=== PATIENT | male | born 1975 | race Caucasian/White ===

== ENCOUNTER 2024-08-10 09:46 | Emergency (ER) | payer OTHER, SELFPAY ==
[2024-08-10 09:50] VITALS: BP 152/87
--- NOTE | 2024-08-10 10:41 | ED.MUSCINJ ---
HPI-Injury
General
Chief Complaint: Musculo-Skeletal Complaint
Time Seen by Provider: 08/10/24 10:29
History of Present Illness-Injury
Initial Injury comments:
The patient is a 48-year-old male who presents with acute onset of pain in the right leg. The patient reports that while walking to get coffee, he experienced a sudden popping sensation in his leg, initially thought to be due to stepping on
something. However, the sensation was followed by significant pain, making it difficult to bear weight on the affected leg. The pain is concentrated in the Achilles tendon area. The patients spouse assisted in bringing him to the facility as he was
unable to walk. He denies any numbness tingling or swelling. He is having significant amount of pain. No prior issues with his Achilles tendon or injuries to his ankle.
Phy Exam
Physical Exam
Physical Exam:
GENERAL: in no acute distress
HEENT: normocephalic, extraocular movements intact
NECK: normal inspection
RESPIRATORY: no respiratory distress
CARDIOVASCULAR: regular rate and rhythm
EXTREMITIES: Right lower extremity with no swelling, tenderness over Achilles tendon, difficulty with plantarflexion, able to dorsiflex, positive Atwood test. soft compartments
NEUROLOGIC: awake and alert, moves all extremities
SKIN: warm
Injury Course
Orders/Labs/Results
Orders:
Orders
08/10/24 09:53
CR Ankle - Right Min 3 Views * Urgent
Comment:
Reason For Exam: posterior pain, injury
08/10/24 10:39
Ibuprofen [Motrin] 600 mg PO NOW STA
08/10/24 11:01
Splints/Slings/Crut- Treatment ONCE
Location: Left
Type of Splint: Short Leg
Comment: plantar flexion
MDM/Problems Addressed
Differential Diagnosis Includes:
Patient is a 48-year-old man presenting to the emergency department with ankle pain after he heard a pop when stepping on it. On arrival vitals are notable for hypertension and exam does show positive Atwood test. Differential clues of Achilles
tendon injury/rupture versus ankle sprain versus fracture though less likely. Will obtain x-ray. Will place patient in a posterior splint in plantarflexion and make him nonweightbearing. Will give anti-inflammatory. Patient will need to
follow-up with orthopedic outpatient.
*Critical Care Note
Total Time (30-74mins, 75-104mins- exclusive of procedures): Not Applicable
Update Note
Update Note:
X-ray per my interpretation with no obvious fracture. Patient placed in splint. He is advised to be nonweightbearing. Will discharge this time.
ED Attending Note
-
Portions of this chart may have been created with voice recognition software.� Occasional wrong word or��sound alike� substitutions may have occurred due to the inherent limitations of voice recognition software.
Discharge Plan
Departure
Patient Disposition: Home (Routine Discharge)
Date of Disposition: 08/10/24
Time of Disposition: 11:30
Patient with high blood pressure during this ER visit?: No
Discharge Problem:
Achilles tendon injury
Instructions: Splint Care
Referrals:
Braeden Frederick MD [Active, Orthopedics] - Call in 1-3 days for appt
NONE,* [Family Provider, Internal Medicine]
Activity Restrictions/Additional Instructions:
You were seen in the Emergency Department today for an ankle injury. While you were here we placed you in a splint for suspected Achilles tendon injury. Please do not bear any weight on the leg until you have been cleared by orthopedics.
We would like for you to follow up with your primary care physician for further evaluation. If you experience fever, worsening of your symptoms, or develop any other new or concerning symptoms, please return to the Emergency Department immediately.
Please see the attached sheet for additional information.
Discharge Date and Time
Print Language: CHADIAN
[2024-08-10] MEDS: MOTRIN 600 MG PO (11:12)
== END 2024-08-10 11:55 | disposition home or self-care (01) ==
LOC: EMR 09:46
PROVIDERS: EMERGENCY PHYSICIAN Student in an Organized Health Care Education/Training Program
DX: S86.001A Unspecified injury of right Achilles tendon, initial encounter (principal); X58.XXXA Exposure to other specified factors, initial encounter; Y93.01 Activity, walking, marching and hiking
CPT/HCPCS: 29515; 99283; 73610

== ENCOUNTER → 2024-08-11 15:37 | Outpatient (REF) | payer OTHER, SELFPAY | LOC: RAD 15:37 | PROVIDERS: ATTENDING PHYSICIAN Physician Assistant Medical | DX: S05.50XA Penetrating wound with foreign body of unspecified eyeball, initial encounter (principal) | CPT/HCPCS: 70030 ==

== ENCOUNTER 2024-08-27 10:28 | Inpatient (IN) | payer OTHER, SELFPAY ==
[2024-08-26 18:04] VITALS: BP 97/76
[2024-08-26 18:31] LABS: % Basophils 0.2 % (0-2); % Eosinophils 0.7 % (0-6); % Immature Granulocytes 0.3 % (0-0.5); % Lymphocytes 15.9 % (20.5-51.1); % Monocytes 5.2 % (1.7-9.3); % Neutrophils 77.7 % (42.2-75.2); Absolute Eosinophils 0.1 10^3/uL (0-0.7); Absolute Lymphocytes 1.4 10^3/uL (1.2-3.4); Absolute Monocytes 0.5 10^3/uL (0.1-0.6); Absolute Neutrophils 6.9 10^3/uL (1.4-6.5); Hematocrit 35.4 % (39.0-52.0); Hemoglobin 12.3 g/dL (13.0-18.0); Mean Corp Hgb Conc. 34.7 g/dL (33.0-37.0); Mean Corpuscular Hgb 33.1 pg (27.0-31.0); Mean Corpuscular Volume 95.2 fL (80.0-94.0); Mean Platelet Volume 10.1 fL (7.4-10.4); Nucleated Red Blood Cells % 0 % (-); Platelet Count 196 10^3/uL (130-400); Red Blood Cell Count 3.72 10^6/uL (4.70-6.10); White Blood Cell Count 8.9 10^3/uL (4.8-10.8)
[2024-08-26 19:03] LABS: Troponin I < 0.012 ng/ml
[2024-08-26 19:05] LABS: ALT (SGPT) 25 U/L (0-50); AST (SGOT) 22 U/L (17-59); Albumin 3.9 g/dl (3.5-5.0); Alkaline Phosphatase 52 U/L (38-126); Blood Urea Nitrogen 46 mg/dl (9-20); Calcium 9.2 mg/dl (8.4-10.2); Carbon Dioxide 28 mmol/L (22-30); Chloride 108 mmol/L (98-107); Glucose 145 mg/dl (70-99); Sodium 140 mmol/L (135-145); Total Bilirubin 0.8 mg/dl (0.2-1.3); Total Protein 5.9 g/dl (6.3-8.2); eGFR > 60.00
[2024-08-26 20:26] VITALS: BMI 24.0
[2024-08-26] MEDS: NSS 1000 IV (21:36)
[2024-08-26 22:00] VITALS: BP 110/58; BP 121/67; PULSE 71; PULSE 90
[2024-08-26 22:05] LABS: D-Dimer < 0.27 ug/mlFEU (0.00-0.50)
--- NOTE | 2024-08-26 22:50 | ED.GENMED ---
History of Present Illness
General
Chief Complaint: Dizziness
Source: patient and spouse
Time Seen by Provider: 08/26/24 20:46
History of Present Illness
History of Present Illness:
Note:
CHIEF COMPLAINT(S)
Lightheadedness and fatigue.
HISTORY OF PRESENT ILLNESS
The patient is a 49-year-old male with a medical history significant for an Achilles tendon rupture, scheduled for surgical repair tomorrow. He presents with lightheadedness and fatigue. The patient reports feeling dizzy all day and experiencing
increased fatigue following a strenuous [place]. He initially felt unwell at home, resting on the floor and bed for relief. Symptoms of lightheadedness persisted when attempting to stand, especially after being supine, and he was nearly
ready to 'fall over.' He consumed fluids and was able to ambulate downstairs after resting. He reports no chest pain or shortness of breath, but felt 'real lightheaded,' sadi to being hungover. Current medications include four baby aspirin daily and
intermittent ibuprofen for pain, which has decreased in severity. No recent intense heat exposure reported, despite current high temperatures. Blood test results suggested dehydration, with a BUN/creatinine ratio greater than 20:1. Theres a concern
for potential thromboembolic events due to immobility and a scheduled Achilles tendon surgery.
ADDITIONAL HISTORY OBTAINED FROM SOURCES OTHER THAN THE PATIENT
According to the spouse, the patient has been fatigued and unable to drive.
SOCIAL DETERMINANTS AFFECTING HEALTH
The patient has recently traveled overseas for work, which was reportedly exhausting.
ALLERGIES
Penicillin.
REVIEW OF SYSTEMS
- General: Fatigue, lightheadedness.
- Cardiovascular: No chest pain.
- Respiratory: No shortness of breath.
- Neurological: Lightheadedness worsening upon standing; no headache, no vision changes, no motor weakness.
PHYSICAL EXAM
- General: Patient is awake, alert, and in no apparent distress.
- Head and Neck: Extraocular movements intact, pupils equal, round, and reactive to light, no jugular venous distention.
- Cardiovascular: Heart is regular without murmur.
- Respiratory: Lungs are clear.
- Extremities: Patient has a boot on the right lower extremity; no edema noted.
PLAN
Administer intravenous fluids for rehydration. Check orthostatic vital signs to evaluate dehydration further. Perform diagnostic testing to evaluate for thromboembolism, including D-dimer, with subsequent imaging (CT scan for pulmonary embolism
and/or ultrasound of the lower extremity) as indicated by test results. Proceed with hydration and pre-operative preparation without delay to tomorrows scheduled surgery. Patient advised to report any worsening symptoms.
DIFFERENTIAL DIAGNOSIS
The Differential Diagnosis includes, in no particular order and is not limited to:
1. Dehydration
2. Orthostatic hypotension
3. Pulmonary embolism
4. Deep vein thrombosis
5. Adverse drug effect (aspirin/ibuprofen)
6. Vasovagal syncope
7. Anemia
8. Electrolyte imbalance
9. Infection/sepsis
10. Cardiovascular event (e.g., arrhythmia)
EKG
My independent EKG interpretation is:
- Normal rhythm
- Normal axis
- SC interval is normal
- QRS duration is normal
- QTc interval is normal
- No Q wave changes
Disposition:
SUMMARY OF ENCOUNTER
The patient, a 49-year-old male with a history of Achilles tendon rupture scheduled for surgical repair, presented to the emergency department with symptoms of lightheadedness and fatigue, likely due to dehydration following overseas travel.
Intravenous fluids were administered, leading to symptomatic improvement. Considering recent immobility and travel, a D-dimer test was conducted due to the concern for thromboembolic events, but it returned negative. The patient remained stable with
no orthostatic changes post-rehydration and tolerated oral intake. Consequently, the patient was deemed safe for discharge with directions for outpatient follow-up with anesthesia and orthopedics before the scheduled surgery.
After final review of labs and findings of mild anemia and elevated BUN and recent NSAID use, concern for GI bleed. Rectal exam does show dark stool that is strongly heme positive.
DISPOSITION
The patient is discharged with outpatient follow-up planned.
INDEPENDENT REVIEW OF LABS AND INTERPRETATION OF TESTS
My independent review of labs reveals a BUN/creatinine ratio of 46/0.9, a negative D-dimer, hemoglobin level of 12.3, and a normal white blood cell count. These findings indicate dehydration without evidence of thromboembolism.
MEDICATION RECONCILIATION
Medications administered include intravenous fluids for rehydration.
MEDICAL DECISION MAKING
1. Number & Complexity of Problems:
- Chronic conditions affecting care include a previous Achilles tendon rupture.
- The differential diagnosis included dehydration, orthostatic hypotension, and potential thromboembolic events.
2. Data Reviewed:
- Category 1: Review and independent interpretation of lab results, including a negative D-dimer and dehydration indicators. Mild anemia elevated BUN
3. Risk: Consideration for admission was made due to the complexity and risk of thromboembolism due to immobility, but outpatient management was deemed appropriate based on negative D-dimer results, stable vitals, and reliable follow-up plan.
However given GI bleed will admit for IV PPI and GI evaluation
PATHOLOGIES TO CONSIDER
- Pulmonary embolism due to recent immobility and travel.
- Deep vein thrombosis considering similar risk factors, though ruled out with a negative D-dimer.
Phy Exam
Physical Exam
Physical Exam:
.
Course
Orders/Labs/Results
Orders:
Orders
08/26/24 18:06
Electrocardiogram (*1) Urgent
Reason for Study: Chest Pain
EKG- Treatment ONCE
08/26/24 18:17
Complete Blood Count/With Diff Urgent
Comprehensive Metabolic Panel Urgent
Troponin I Urgent
08/26/24 20:47
0.9% Sodium Chloride 1000 ml [Nss] 1,000 ml IV BOLUS
08/26/24 20:59
Orthostatic VS- Treatment ONCE
0.9% Sodium Chloride 1000 ml [Nss] 1,000 ml IV BOLUS
08/26/24 21:35
D-Dimer Urgent
08/26/24 23:00
Flush (0.9% Sodium Chloride) [Flush (Nss)] See Dose Instructions IV PER PROTOCOL
08/26/24 23:03
Pantoprazole 80 mg/100 ml Nss [Protonix] 80 mg in 100 ml IV NOW
Pantoprazole [Protonix IV] 80 mg IV NOW STA
08/26/24 23:31
Admit/Transfer Patient As Directed
Co-Sign Provider:
Level of Care: Observation services
Assign to:: Telemetry
Physician / Group: Jennifer
Diagnosis: near syncope
Reason for Telemetry: Syncope
Date to Stop Telemetry: 08/28/24
Time to Stop Telemetry: 11:00
08/26/24 23:32
PRN Pain Medication Management As Directed
May give lesser potent ordered pain med per pt: Yes
preference::
Protocol:: Medication orders for pain may be administered in a
manner that supports deferring to patient preference
when the pt is:
- Requesting an ordered lesser potent pain medication.
Least to most potent pain medications are defined
as: acetaminophen < NSAID < tramadol < opioids
(morphine, oxycodone, hydromorphone).
- Requesting a lesser dose of the same medication IF
ORDERED.
- Requesting a less intrusive route of administration
if both routes are prescribed by the provider (PO <
IV).
08/26/24 23:33
Code Status As Directed
Resuscitation Status: Full Code
08/26/24 23:37
Type And Crossmatch [Type+Screen] Stat
08/27/24 00:33
Acetaminophen [Tylenol] 650 mg PO Q6HPRN PRN
Dextrose 5%/Lactringers 1000ML [D5lr] 1,000 ml IV 100 mls/hr
Ondansetron Injectable [Zofran] 4 mg IV Q6HPRN PRN
Oxycodone [Roxicodone] 5 mg PO Q4HPRN PRN
08/27/24 00:33
Consult Notification Routine
Specialty to Notify: Gastroenterology
Date consulting provider notified: 08/27/24
Time consulting provider notified: 07:05
Notified:: Provider
Comment: TT
GASTROINTESTINAL CONSULT Routine
Consulting Provider: Keila James
Was physician already notified: No
Reason for consult: melena/ near syncope susp ugib
Activity As Directed
Activity Level: With Assistance
INT (Intravenous Needle Therapy) As Directed
Comment: Place 2 IV catheters of the largest bore possible until stable
Orthostatic Vital Signs As Directed
Orthostatic VS Frequency: Now
Comment: then every four hours for twenty-four hours
Pneumatic Compression Sleeves As Directed
Type: Knee high
Vital Signs As Directed
Frequency: Per unit guidelines
DX Deep Vein Thrombosis Video Routine
08/27/24 00:56
ABO2 Routine
BBK Wristband Number:
Associate notified that ABO2 has been ordered: [id number]
Date: 08/27/24
Time: 00:28
Lokie Driver ID: [id number]
08/27/24 03:49
Add On- LAB Urgent
Tests Added?: magnesium
08/27/24 03:51
Basic Metabolic Panel IN AM
Complete Blood Count/No Diff IN AM
Lactic Acid Urgent
Magnesium Routine
08/27/24 03:55
0.9% Sodium Chloride 500 ml [Nss] 500 ml IV BOLUS
08/27/24 04:09
Blood Bank Products [* Blood Bank Products] Stat
Blood Bank Products: *Packed RBC Leuko(PRBC's)
Quantity: 1
Transfuse Today: Yes
Reason: Bleeding
08/27/24 04:29
0.9% Sodium Chloride 500 ml [Nss] 500 ml IV BOLUS
08/27/24 04:37
Abdomen/Pelvis w Contrast CT [CT Abd/pelvis W Iv Cont] Stat
Comment: After the blood transfusion start
Reason For Exam: GI bleed/ hypotension and drop in hgb level
08/27/24 Breakfast
NPO
Allow oral meds: Yes
Allow clear liquids: Sips of Clears
08/27/24 07:01
Metoclopramide [Reglan] 10 mg IV NOW STA
08/27/24 07:36
Phenylephrine [Homer-Synephrine] 10 mg .ROUTE .STK-MED ONE
Propofol [Diprivan] 20 ml .ROUTE .STK-MED
08/27/24 07:47
Lidocaine 2% Mpf [Xylocaine Mpf 2%] 100 mg .ROUTE .STK-MED ONE
Rocuronium [place] [Rocuronium] 50 mg .ROUTE .STK-MED ONE
Sugammadex Sodium [Bridion] 200 mg .ROUTE .STK-MED ONE
08/27/24 08:58
Dexamethasone Sod Phosphate [Decadron] 20 mg .ROUTE .STK-MED ONE
Ondansetron Injectable [Zofran] 4 mg .ROUTE .STK-MED ONE
08/27/24 09:02
Fentanyl Citrate/Pf [Sublimaze] 100 mcg .ROUTE .STK-MED ONE
08/27/24 09:06
EPINEPHrine [Adrenalin 1 mg/10 ml] 1 mg .ROUTE .STK-MED ONE
08/27/24 09:45
Pantoprazole 80 mg/100 ml Nss [Protonix] 80 mg in 100 ml IV Q10H
08/27/24 Lunch
Clear Liquid
At Your Request: Limited Participation
Clear Liquids: No red liquids
08/27/24 10:03
Propofol [Diprivan] 20 ml .ROUTE .STK-MED
08/27/24 11:30
Sucralfate Suspension [Carafate Suspension] 1 gm PO ACHS
08/27/24 17:20
H&H Q6H
08/27/24 23:30
H&H Q6H
Abnormal Lab Results
08/26/24 08/27/24 08/27/24
18:17 00:03 03:38
RBC 3.72 L 10^6/uL
(4.70-6.10)
Hgb 12.3 L g/dL
(13.0-18.0)
Hct 35.4 L %
(39.0-52.0)
MCV 95.2 H fL
(80.0-94.0)
MCH 33.1 H pg
(27.0-31.0)
Absolute Neuts (auto) 6.9 H 10^3/uL
(1.4-6.5)
Neutrophils % 77.7 H %
(42.2-75.2)
Lymphocytes % 15.9 L %
(20.5-51.1)
Chloride 108 H mmol/L
(98-107)
BUN 46 H mg/dl
(9-20)
Glucose 145 H mg/dl
(70-99)
Total Protein 5.9 L g/dl
(6.3-8.2)
POC Glucose 123 H mg/dl
(70-99)
Crossmatch IS Only See Detail
08/27/24
03:51
RBC 2.77 L 10^6/uL
(4.70-6.10)
Hgb 9.1 L D g/dL
(13.0-18.0)
Hct 26.3 L %
(39.0-52.0)
MCV 94.9 H fL
(80.0-94.0)
MCH 32.9 H pg
(27.0-31.0)
Absolute Neuts (auto)
Neutrophils %
Lymphocytes %
Chloride 112 H mmol/L
(98-107)
BUN 48 H mg/dl
(9-20)
Glucose 121 H mg/dl
(70-99)
Total Protein
POC Glucose
Crossmatch IS Only
08/27/24 03:51
08/27/24 03:51
Vital Signs
Initial and Last Documented VS:
Initial Vital Signs
Temp Pulse Resp BP Pulse Ox
98.9 F 112 16 97/76 100
08/26/24 18:04 08/26/24 18:04 08/26/24 18:04 08/26/24 18:04 08/26/24 18:04
Last Documented Vital Signs
Temp Pulse Resp BP Pulse Ox
98.2 F 95 21 91/52 100
08/28/24 05:58 08/28/24 06:00 08/28/24 06:00 08/28/24 06:00 08/28/24 06:00
*Pulse Oximetry
SaO2: 100
Oxygen Mode of Delivery: Room air
Patient hypoxic: no
*Critical Care Note
Total Time (30-74mins, 75-104mins- exclusive of procedures): 30 minutes
Update Note
Update Note:
Given elevated BUN and mild anemia in the face of near syncope rectal exam was performed showing strongly heme positive dark stool. He has recently been on aspirin and ibuprofen. Aspirin for DVT prophylaxis. Admit. Will need GI evaluation repeat
hemoglobin do anticipate drop in hemoglobin
ED Attending Note
-
Portions of this chart may have been created with voice recognition software.� Occasional wrong word or��sound alike� substitutions may have occurred due to the inherent limitations of voice recognition software.
Discharge Plan
Departure
Patient Disposition: Admit
Date of Disposition: 08/26/24
Time of Disposition: 23:01
Admit to: Telemetry
Presentation/result/management discussed w/ accepting MD/DO: Hospitalist
Discharge Problem:
GI (gastrointestinal bleed), Near syncope
Interventions
Interventions:
*Risk Screen - Suicide Last Done: 08/26/24 18:04
*General Assessment Last Done: 08/27/24 00:40
*Neglect/Abuse Screening Last Done: 08/26/24 18:04
*ED- Fall Risk Assessment Last Done: 08/27/24 00:40
*ED COVID-19 Vaccine History Last Done: 08/27/24 00:40
*Nursing Disposition Last Done: 08/27/24 00:54
ED- Neurological Assessment Last Done: 08/26/24 23:22
ED- Cardiac Assessment Last Done: 08/26/24 23:22
ED Swallowing Screen Last Done: 08/27/24 00:40
Discharge Date and Time
Discharge Date/Time: 08/27/24 00:55
--- NOTE | 2024-08-26 23:26 | HPS.HSE ---
Family Physician
-
Family Physician: NOT KNOW UNKNOWN - PT DOES
Chief Complaint
-
Near syncope
History of Present Illness
49-year-old male with no known second past medical history presents to the emergency department with 1 day of dizziness weakness and a presyncopal episode.
Patient had a recent Achilles tendon rupture in the right lower extremity. He is pending surgery. He has been started on DVT prophylaxis with aspirin twice daily and he has been taking NSAIDs for pain. He reports that he had usual oral intake
today but notes decreased appetite. He spent about 5 minutes in the sun and then when he came inside he felt slightly lightheaded. When he got up to go down a flight of stairs he got very weak and lightheaded that he had to slide down the stairs.
There was no loss of consciousness. He denied having any palpitations. He denied having any chest pain.
Patient did have regular bowel movements but denies seeing any melena. Denies any hematochezia. He denies any abdominal pain. He does have intermittent use of Pepcid and Tums for abdominal discomfort. Denies current reflux symptoms. Ordered the
aforementioned medications patient denies any antihypertensive or cardiac meds.
On arrival in the emergency department he had a blood pressure of 90 systolic, he was tachycardic to 112.
Hemoglobin was 12.3 platelet count was normal. Electrolytes BUN/creatinine were normal.
ECG shows a normal sinus rhythm at a rate of 95.
Patient felt improved after liter of normal saline bolus rectal exam revealed guaiac positive dark stools.
Medical History
Past Medical History
Past Medical History: Reports None
Past Surgical History: Reports None
Social History
Tobacco: Non-smoker
Alcohol: Occasional
Drug: None
Personal:
Living: With Family
Employment: Employed
Family History
Family History: Not pertinent
Allergies / Home Medications
Allergies reflects when Allergies were last updated in [facility].
Home Medications with original date entered in [facility]
Allergy/Medication List:
Allergies
Allergy/AdvReac Type Severity Reaction Status Date / Time
Penicillins Allergy Hives Verified 08/26/24 18:04
No current medications
Review of Systems
-
Constitutional: Reports No Symptoms
EENT: Reports No Symptoms
Respiratory: Reports No Symptoms
Cardiac: Reports No Symptoms
Abdomen/GI: Reports No Symptoms
: Reports No Symptoms
Musculoskeletal: Reports No Symptoms
Skin: Reports No Symptoms
Neurological: Reports Dizzy
Endocrine: Reports No Symptoms
Hematologic/Lymphatic: Reports No Symptoms
Psych: Reports No Symptoms
Physical Exam
Vital Signs
Vital Signs
Temp Pulse Resp BP Pulse Ox
98.9 F 90 17 121/67 100
08/26/24 18:04 08/26/24 22:00 08/26/24 22:00 08/26/24 22:00 08/26/24 22:52
Physical Exam
General: Well Developed, Well Nourished and No Apparent Distress
HEENT: NormoCephalic, Moist mucous membranes and Atraumatic
Respiratory: Clear
Cardiac: S1/S2 and Regular Rhythm; No Murmur or Rub
GI: Soft, Non Tender, Non Distended and Normal Bowel Sounds; No Organomegaly
Rectal: Deferred by Provider
Musculoskeletal: No Clubbing, No Cyanosis and No Edema
Skin: No Rash
Neuro: Nonfocal/grossly intact
Laboratory Results
-
08/26/24 18:17
08/26/24 18:17
Laboratory Results
Total Bilirubin 0.8 mg/dl (0.2-1.3) 08/26/24 18:17
AST 22 U/L (17-59) 08/26/24 18:17
ALT 25 U/L (0-50) 08/26/24 18:17
Alkaline Phosphatase 52 U/L (38-126) 08/26/24 18:17
Troponin I < 0.012 ng/ml 08/26/24 18:17
Data Reviewed
-
Medical Tests (Nuc Med, Echo, EKG etc): Image Personally Visualized and interpreted
Lab Data: Labs Reviewed by me
Old Records: Reviewed
Impression/Plan
-
IMPRESSION:
49-year-old male presenting to the emergency department with dizziness and presyncopal episode. Improved with IV fluids in the ED but then was found to have heme positive dark stools on rectal examination. ECG is nonischemic and unremarkable. His
labs are stable with a hemoglobin of 12.3 and a normal creatinine. The BUN is actually quite elevated to 46 with normal creatinine. If pre-syncope is from GIBleed, blood loss could be acute and significant.
PLAN:
Suspected upper GI bleed
- Admit to telemetry observation
- Trend H&H, type and screen, consented, transfuse if hemodynamically unstable or hemoglobin drops less than 8
- Suspect gastritis from NSAIDs and aspirin, PPI gtt started, continued
- npo, sips of clears
- Continue IV fluids
- Hold the NSAIDs and the aspirin for now, acetaminophen and Dilaudid as needed for pain control
- Antiemetics as needed
- GI consult,
He is pending tendon surgery tomorrow would likely will have to reschedule it.
Review prophylaxis�SCDs for now
CODE STATUS�full code
[2024-08-27] VITALS (32 sets, daily range): BP systolic 60–138; BP diastolic 45–91; BMI 24.1
[2024-08-27] MEDS: PROTONIX IV 80 MG IV (00:04)
[2024-08-27] MEDS: PROTONIX 100 IV ×3 (00:04→21:42)
[2024-08-27] MEDS: D5LR 1000 IV (01:13)
[2024-08-27 03:40] LABS: Glucose - Point of Care 123 mg/dl (70-99)
--- NOTE | 2024-08-27 03:50 | W.PN.UPDATE ---
Update Note
Progress Note Update
Called at bedside to assess the patient as he Lightheaded, diaphoretic, dizzy, and pale. BP 69/45, hr95, SPo2 95%, afebrile. BS 123.
Patient denies nausea, vomiting or abdominal pain. No Visible signs of bleeding.
Abdomen is soft, non tender and non distended.
-500cc NSS bolus/open wide and bp improved 101/63,
-Hgb level dropped from 12.3 to 9.1 with giving the symptoms will order one unit of blood.
Discussed the case with the admitting physician
-Will give another 500cc of NSS.
- Abd/PLV CT with contrast.
-Will transfer the patient to IMU for close monitoring.
[2024-08-27] MEDS: NSS 500 IV ×3 (04:01→23:34)
[2024-08-27 04:11] LABS: Hematocrit 26.3 % (39.0-52.0); Hemoglobin 9.1 g/dL (13.0-18.0); Mean Corp Hgb Conc. 34.6 g/dL (33.0-37.0); Mean Corpuscular Hgb 32.9 pg (27.0-31.0); Mean Corpuscular Volume 94.9 fL (80.0-94.0); Mean Platelet Volume 10.4 fL (7.4-10.4); Platelet Count 183 10^3/uL (130-400); Red Blood Cell Count 2.77 10^6/uL (4.70-6.10); Red Cell Dist. Width 11.9 % (11.5-14.5); White Blood Cell Count 9.7 10^3/uL (4.8-10.8)
[2024-08-27 04:15] LABS: Lactic Acid 1.5 mmol/L (0.7-2.0)
[2024-08-27 04:21] LABS: Blood Urea Nitrogen 48 mg/dl (9-20); Calcium 8.6 mg/dl (8.4-10.2); Carbon Dioxide 25 mmol/L (22-30); Chloride 112 mmol/L (98-107); Estimated Creatinine Clearance > 125 ml/min; Glucose 121 mg/dl (70-99); Potassium 4.2 mmol/L (3.5-5.1); Sodium 142 mmol/L (135-145); eGFR > 60.00
--- NOTE | 2024-08-27 04:22 | PTCARENOTE ---
Addendum entered by Patricia Underwood RN 08/27/24 04:50:
Pt appear stable. Blood transfusion will be initiated, taken to Ct and transfer to IMU for closely monitor.
Original Note:
Pt rang the call collins stating he didn't fell good. Pt states he feels lightheaded, dizzy, and his ears are plugged. Pt was diaphoretic, pale, and had mild nausea. CHICLE GRINDER FEEDER notified and came up to see pt. Blood glucose was checked, was 123. Pt's SBP was
in the 60-70's. Pt was given 500 ml NS IV bolus. After 20 min, Pt BP came up to 101/63. Pt appeared much better. Labs drawn and send. No BM. Pt AAOx3. Pt had a drop of hgb from 12.3 to 9.1. CHICLE GRINDER FEEDER notified and Blood order. Will continue to monitor. Call
collins within reach.
--- NOTE | 2024-08-27 06:29 | PTCARENOTE ---
Patient transported to IMU via bed. Received pt receiving PRBCs. ST on the monitor HR 120s. BP 138/89 MAP 89. AAOx3. Pt denies any pain or discomfort at this time. IVF running. Pt has a R leg brace due to Achilles injury. Pt arrived with crutches.
Bowel sounds present. Pt oriented to the unit and educated on the call collins. Call collins is within reach.
--- NOTE | 2024-08-27 07:30 | CON.GI ---
Addendum entered and electronically signed by Keila Field Do, MD 08/27/24 10:51:
I saw and examined the patient.
The BEHAVIORAL INTERVENTIONIST's note was reviewed and I agree with the note.
Comment: 49yo M healthy with spontaneous achilles rupture 08/11/2024 on high dose NSAIDS who admitted for melena with tachycardia/hypotension Hbg drop from 12 to 9 overnight. CTA with active bleeding in DU. Recommend urgent EGD this AM with
elective intubation. Please see EGD procedure note following. Risk/benefits discussed all questions answered.
Original Note:
Consultation
-
Date/Time Consultation Requested: 08/27/243
Date/Time Consultation Performed: 08/27/24 0710
Requesting Provider: Dr. Rodriguez
Performing Provider: Dr. James/SHU Carvalho
Reason for Consultation: Acute upper GI bleed
Medical History
Chief Complaint / HPI
Chief Complaint: near syncope, melena
History of Present Illness:
49-year-old male with no significant past medical history with recent right Achilles rupture 08/11/2024 taking ibuprofen 1600 mg daily since that time, started on aspirin 162 mg twice daily since 08/15/2024 was to have surgical repair today presents
to the emergency room with acute onset of fatigue, weakness, near syncope, nausea and melena that started on 08/26/2024 mid afternoon. We are asked to evaluate for active acute upper GI bleed. The patient states that he was doing fine up until
yesterday morning when he states he had progressive fatigue. He states by lunchtime he started to feel little bit queasy. He started in the evening where he had acute onset of diarrhea that was black and sticky. He then had near syncopal event
was brought to the emergency room for further evaluation. In the emergency room he had a blood pressure of 90 systolic, tachycardic at 112. Hemoglobin was 12.3. He had melena that was OB positive. BUN was elevated at 46 with a normal creatinine
of 0.9. At 3 AM the patient became pale, diaphoretic and hypotensive. Normal saline bolus was started. Patient's hemoglobin dropped from 12.3 [address] to 9.[address]. CT of the abdomen and pelvis with IV contrast was performed that showed active duodenal
hemorrhage. Currently the patient has 1 unit of packed red blood cells hanging. He is feeling improved. He is still tachycardic at approximately 120-125. His blood pressure is improved and currently when I was in the room it was approximately
116/70. He denies any fevers, chills, vomiting, hematochezia, dysphagia or dyne aphasia. No early satiety or unintentional weight loss. Prior to this he has no GI complaints. He has never had an endoscopy or colonoscopy before. No family
history of gastrointestinal malignancy or IBD. He does not smoke. He drinks maybe 1 alcoholic beverage a week. Other than the above-mentioned ibuprofen and aspirin he does not take any other medications. The patient has had no further bowel
movement since arrival in the emergency room.
Past Medical History
Past Medical History: Other (Right Achilles tendon rupture)
Past Surgical History: None
Social History
Tobacco: Non-Smoker
Alcohol: Occasional (1 a week)
Drug: None
Personal:
Living: With Family
Employment: Employed
Family History
Family History: Other (No family history of gastrointestinal malignancy or IBD)
Allergies / Home Medications
Allergy/AdvReac Type Severity Reaction Status Date / Time
Penicillins Allergy Hives Verified 08/26/24 18:04
Review of Systems
-
All other systems: A 12 pt ROS was Negative except as stated above in HPI
Vital Signs
Temp Pulse Resp BP Pulse Ox
98.6 F 106 14 117/76 99
08/27/24 06:17 08/27/24 06:30 08/27/24 06:30 08/27/24 06:29 08/27/24 06:30
Physical Exam
Exam
General: No Apparent Distress
HEENT: Anicteric
Respiratory: Clear
Cardiac: Regular Rhythm (Tachycardic at 120)
GI: Soft, Non Tender, Non Distended and Normal Bowel Sounds
Rectal: Hem Positive (Melena OB positive stool ER)
Musculoskeletal: No Edema and Other (Right foot in cam boot)
Skin: Warm and Dry
Neuro: AO x 3
Psych: Calm
Results
WBC 9.7 10^3/uL (4.8-10.8) 08/27/24 03:51
Hgb 9.1 g/dL (13.0-18.0) L D 08/27/24 03:51
Hgb Cancelled 08/27/24 03:51
Hct 26.3 % (39.0-52.0) L 08/27/24 03:51
Hct Cancelled 08/27/24 03:51
MCV 94.9 fL (80.0-94.0) H 08/27/24 03:51
Plt Count 183 10^3/uL (130-400) 08/27/24 03:51
Absolute Neuts (auto) 6.9 10^3/uL (1.4-6.5) H 08/26/24 18:17
Sodium 142 mmol/L (135-145) 08/27/24 03:51
Potassium 4.2 mmol/L (3.5-5.1) 08/27/24 03:51
Chloride 112 mmol/L (98-107) H 08/27/24 03:51
Carbon Dioxide 25 mmol/L (22-30) 08/27/24 03:51
BUN 48 mg/dl (9-20) H 08/27/24 03:51
Creatinine 0.7 mg/dL (0.7-1.3) 08/27/24 03:51
Calcium 8.6 mg/dl (8.4-10.2) 08/27/24 03:51
Total Bilirubin 0.8 mg/dl (0.2-1.3) 08/26/24 18:17
AST 22 U/L (17-59) 08/26/24 18:17
ALT 25 U/L (0-50) 08/26/24 18:17
Alkaline Phosphatase 52 U/L (38-126) 08/26/24 18:17
Diagnostic Image Results:
CT abdomen and pelvis with IV contrast:
Duodenal hemorrhage.
Incidental findings include small hepatic and renal cyst.
Prior GI Procedures:
EGD: Never
Colonoscopy: Never
Assessment / Plan
-
49-year-old male with no significant past medical history with recent right Achilles rupture 08/11/2024 taking ibuprofen 1600 mg daily since that time, started on aspirin 162 mg twice daily since 08/15/2024 (DVT prophylaxis) was to have surgical
repair today presents to the emergency room with acute onset of fatigue, weakness, near syncope, nausea and melena that started on 08/26/[address] of abdomen and pelvis with IV contrast shows active duodenal bleed. Patient's hemoglobin
went from 12.3 down to 9.1. Patient with tachycardia hypotension requiring fluid boluses. Now with 1 unit of packed red blood cells hanging. Protonix bolus and drip has been initiated.
Impression:
Acute upper GI bleed
--> CT positive for active duodenal bleed
--> Recent aspirin and ibuprofen use
Right Achilles tendon rupture
Plan:
- N.p.o./IV fluids
- Patient has 2 IV lines at present
- Continue Protonix drip
- Packed red blood cells hanging
- Reglan 10 mg IV now, to facilitate gastric/duodenal clearing of blood products
- EGD planned this morning
- Trend hemoglobin
- Further recommendations to be forthcoming.
-
-
Thank you for consultation and allowing me to participate in the patient's care. Please call the pensionholder information clerk GI physician during the after hours with any questions or concerns.
--- NOTE | 2024-08-27 07:45 | PTCARENOTE ---
Patient received from manager print. Patient resting comfortably in bed. AAO, VSS aside from being tachycardic, more so with activity. Patient was a 4th floor upgrade for Hgb drop. Patient finishing up a unit of PRBC and scheduled for EGD at 0830
this AM. Protonix gtt running. call collins in reach.
[2024-08-27] MEDS: REGLAN 10 MG IV (07:55)
[2024-08-27 11:20] LABS: Hematocrit 27.5 % (39.0-52.0); Hemoglobin 9.8 g/dL (13.0-18.0)
--- NOTE | 2024-08-27 11:40 | W.PN.HOSP.TC ---
Today's Communication/Plan
-
See plan
Assessment / Plan
Assessment / Plan
Impression:
49-year-old male presenting to the emergency department with dizziness and presyncopal episode. Improved with IV fluids in the ED but then was found to have heme positive dark stools on rectal examination. ECG is nonischemic and unremarkable. His
labs are stable with a hemoglobin of 12.3 and a normal creatinine. The BUN is actually quite elevated to 46 with normal creatinine. If pre-syncope is from GIBleed, blood loss could be acute and significant.
Acute gastrointestinal hemorrhage.
Acute blood loss anemia.
Right Achilles tendon rupture
Plan
Acute gastrointestinal hemorrhage
Urgent upper endoscopy 08/27 revealed nonbleeding gastric ulcer and oozing duodenal ulcer. Treated.
Continue IV PPI for 72 hours.
Clear liquid diet.
Acute blood loss anemia
Hemoglobin trending down from 12-9's
Status post packed red blood cells transfused 1 unit
Monitor serial H&H.
Remains tachycardic. Will give isotonic solution as well.
If further drop in hemoglobin, may require additional packed red blood cells transfusion
Right Achilles tendon rupture prompted to NSAIDs use.
Avoid NSAIDs given above.
Analgesic regimen with oxycodone and Tylenol.
Anticipated Discharge: 24 - 48 hours
Subjective/Interval History
-
Date of Service: August 27, 2024
Objective Data
-
Labs:
Laboratory Results
08/27/24 08/27/24 08/27/24
03:51 03:51 03:51
WBC 9.7
Hgb 9.1 L D Cancelled
Hct 26.3 L Cancelled
Plt Count 183
Sodium 142
Potassium 4.2
Chloride 112 H
Carbon Dioxide 25
BUN 48 H
Creatinine 0.7
Glucose 121 H
Calcium 8.6
08/27/24 08/27/24 08/27/24
11:10 17:55 23:55
WBC
Hgb 9.8 L Pending Pending
Hct 27.5 L Pending Pending
Plt Count
Sodium
Potassium
Chloride
Carbon Dioxide
BUN
Creatinine
Glucose
Calcium
Vital Signs:
Vital Signs
Temp Pulse Resp BP Pulse Ox
98.2 F 116 14 98/49 94
08/27/24 11:20 08/27/24 10:15 08/27/24 10:15 08/27/24 10:15 08/27/24 10:15
I&O
08/26/24 08/27/24 08/28/24
06:59 06:59 06:59
Intake Total 0 / 0 300 / 300
Output Total 775 / 775 600 / 600
Balance -775 / -775 -300 / -300
Physical Exam
-
General: Well Developed and No Apparent Distress
HEENT: Normocephalic, Atraumatic and Moist Mucous Membranes
Respiratory: Clear to Auscultation
Cardiac: Regular Rhythm and S1/S2; Negative Murmur, Rub or Gallop
GI: Soft, Nontender, Nondistended and Normal Bowel Sounds; Negative Organomegaly
Rectal: Deferred by Provider
Musculoskeletal: No Clubbing, No Cyanosis and No Edema
Skin: Negative Rash
Neuro: Nonfocal/Grossly Intact
[2024-08-27] MEDS: D5LR IV ×2 (12:53→19:04)
[2024-08-27] MEDS: NSS 1000 IV (13:31)
[2024-08-27 17:39] LABS: Hematocrit 27.8 % (39.0-52.0); Hemoglobin 9.8 g/dL (13.0-18.0)
[2024-08-27 23:39] LABS: Hematocrit 22.4 % (39.0-52.0); Hemoglobin 8.2 g/dL (13.0-18.0)
[2024-08-28] VITALS (34 sets, daily range): BP systolic 78–120; BP diastolic 40–81
--- NOTE | 2024-08-28 00:35 | PTCARENOTE ---
500ml bolus complete. Blood consent verified. Vitals taken, both IV sites intact/functional. 1 unit PRBC started at 00:28. Remains on PPI gtt.
--- NOTE | 2024-08-28 00:52 | W.PN.UPDATE ---
Addendum entered and electronically signed by SHU Flores 08/28/24 03:13:
Still remains with hypotension (asymptomatic) - sleeping. Will give another unit PRBC as he was 8.2 earlier and clearly far from his baseline. RN reports no evidence of melena or bleeding this shift so far.
Original Note:
Update Note
Progress Note Update
2330 bp noted to be low at 86/50. Pt sleeping. Will give nss bolus. Repeat HH pending- last was 9.8
0000 HH 8.2---> will order 1 unit prbc
--- NOTE | 2024-08-28 01:25 | PTCARENOTE ---
Patient blood pressure dropped to 81/51. Notified ATHLETIC SCOUT and NSS 500 ml fluid bolus ordered. Repeated H&H. Hgb 8.2 previously 9.8. 1 unit PRBC ordered. continuing to monitor patient. Patient does not complain of any symptoms at this time.
--- NOTE | 2024-08-28 03:15 | PTCARENOTE ---
patient remains hypotensive after 1 unit of PRBC and saline bolus. SHU Rodriguez ordered second unit of PRBCs. Lab called this RN to ask if H&H would be drawn an hour after 1st unit and before hanging second unit. SHU Rodriguez said
no to lab draw and to hang second unit now. Patient remains asymptomatic and resting in bed with call collins in reach.
[2024-08-28] MEDS: D5LR IV (05:23)
[2024-08-28] MEDS: NSS 1000 IV (06:19)
[2024-08-28 08:04] LABS: Blood Urea Nitrogen 23 mg/dl (9-20); Calcium 8.3 mg/dl (8.4-10.2); Carbon Dioxide 24 mmol/L (22-30); Chloride 112 mmol/L (98-107); Estimated Creatinine Clearance > 125 ml/min; Glucose 108 mg/dl (70-99); Potassium 4.1 mmol/L (3.5-5.1); Sodium 140 mmol/L (135-145); eGFR > 60.00
[2024-08-28 08:08] LABS: % Basophils 0.2 % (0-2); % Immature Granulocytes 0.2 % (0-0.5); % Monocytes 9.3 % (1.7-9.3); % Neutrophils 70.3 % (42.2-75.2); Absolute Lymphocytes 2.5 10^3/uL (1.2-3.4); Absolute Monocytes 1.2 10^3/uL (0.1-0.6); Absolute Neutrophils 8.8 10^3/uL (1.4-6.5); Hematocrit 25.5 % (39.0-52.0); Hemoglobin 8.9 g/dL (13.0-18.0); Mean Corp Hgb Conc. 34.9 g/dL (33.0-37.0); Mean Corpuscular Hgb 32.2 pg (27.0-31.0); Mean Corpuscular Volume 92.4 fL (80.0-94.0); Mean Platelet Volume 10.7 fL (7.4-10.4); Nucleated Red Blood Cells % 0 % (-); Platelet Count 125 10^3/uL (130-400); Red Blood Cell Count 2.76 10^6/uL (4.70-6.10); Red Cell Dist. Width 13.2 % (11.5-14.5); White Blood Cell Count 12.5 10^3/uL (4.8-10.8)
[2024-08-28] MEDS: PROTONIX 100 IV ×2 (09:39→18:39)
--- NOTE | 2024-08-28 09:51 | W.PN.GI.CBS2 ---
Today's Communication / Plan
-
Repeat hemoglobin at 10 AM, n.p.o. for potential scope, monitor bowel movements and please chart any bowel movements
Assessment / Plan
-
49-year-old male with no significant past medical history with recent right Achilles rupture 08/11/2024 taking ibuprofen 1600 mg daily since that time, started on aspirin 162 mg twice daily since 08/15/2024 (DVT prophylaxis) was to have surgical
repair today presents to the emergency room with acute onset of fatigue, weakness, near syncope, nausea and melena that started on 08/26/[address] of abdomen and pelvis with IV contrast shows active duodenal bleed. Patient's hemoglobin
went from 12.3 down to 9.1. Patient with tachycardia hypotension requiring fluid boluses. Now with 1 unit of packed red blood cells hanging. Protonix bolus and drip has been initiated.
Impression:
Acute upper GI bleed
--> CT positive for active duodenal bleed
--> Recent aspirin and ibuprofen use
Right Achilles tendon rupture
08/27/2024 -EGD with Do
Hold blood residue in the fundus unable to clear, small gastric ulcer nonbleeding
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 Treated with epinephrine and 4 clips
No specimens were taken
08/28/2024 -patient received 1 unit of blood the morning of 626 with hemoglobin posttransfusion 9.8
--Last night's hemoglobin 8.2 and was given 2 units of blood overnight and repeat hemoglobin 8.9
--Blood pressures are still low. He has not had any melena since yesterday and BUN is decreasing which is comforting
--Will repeat hemoglobin at 10 AM today. If it drops significantly we will repeat EGD today
--N.p.o.,
--Communicated with hospitalist and RN
--Patient also had multiple questions that I answered regarding H. pylori testing and DVT prophylaxis.
--He is not a candidate for DVT prophylaxis other than SCDs in the setting of active bleeding. He did not seem to understand this well. I did communicate with his orthopedic doctor who then called him to explain
--Patient is currently on a PPI drip so H. pylori testing is not all that accurate and we can test it later on. He had a clear reason for his ulcers which were significant NSAID use.
Subjective
Subjective
Date of Service: August 28, 2024
Patient has not had any melena since yesterday. He did receive 2 units of blood overnight. His blood pressure is borderline. Denies any complaints. Multiple questions answered
Objective
Data Reviewed
Laboratory Data:
Laboratory Results
08/28/24 07:18
Laboratory Results
Magnesium 2.0 mg/dl (1.6-2.3) 08/27/24 03:51
Total Bilirubin 0.8 mg/dl (0.2-1.3) 08/26/24 18:17
AST 22 U/L (17-59) 08/26/24 18:17
ALT 25 U/L (0-50) 08/26/24 18:17
Alkaline Phosphatase 52 U/L (38-126) 08/26/24 18:17
Vital Signs and I&O:
Vital Signs
Temp Pulse Resp BP Pulse Ox
98.1 F 95 21 91/52 100
08/28/24 07:59 08/28/24 06:00 08/28/24 06:00 08/28/24 06:00 08/28/24 06:00
I&O
08/27/24 08/28/24 08/29/24
06:59 06:59 06:59
Intake Total 0 / 0 800 / 800
Output Total 775 / 775 1750 / 1750
Balance -775 / -775 -950 / -950
Physical Exam
Physical Exam
HEENT: Anicteric
Cardiology: Normal Sinus Rhythm
Pulmonary: Clear
GI: Soft, Non Distended, Non Tender and Normal Bowel Sounds
Neuro: Non Focal
[2024-08-28 10:22] LABS: Hemoglobin 8.9 g/dL (13.0-18.0)
--- NOTE | 2024-08-28 12:28 | W.PN.HOSP.TC ---
Today's Communication/Plan
-
Monitor closely for signs of additional hemorrhage.
Serial hemoglobin.
Clear liquid diet
IV PPI.
Mechanical DVT phylaxis
Assessment / Plan
Assessment / Plan
Impression:
49-year-old male presenting to the emergency department with dizziness and presyncopal episode. Improved with IV fluids in the ED but then was found to have heme positive dark stools on rectal examination. ECG is nonischemic and unremarkable. His
labs are stable with a hemoglobin of 12.3 and a normal creatinine. The BUN is actually quite elevated to 46 with normal creatinine. If pre-syncope is from GIBleed, blood loss could be acute and significant.
Acute gastrointestinal hemorrhage.
Acute blood loss anemia.
Right Achilles tendon rupture
Plan
Acute gastrointestinal hemorrhage
Urgent upper endoscopy 08/27 revealed nonbleeding gastric ulcer and oozing duodenal ulcer. Treated.
Continue IV PPI for 72 hours.
Clear liquid diet.
Family requested test for H. pylori. Ordered stool antigen, although would be low specificity if negative while on PPI.
Acute blood loss anemia
Hemoglobin trending down from 12-8s over the last 24 hours
Status post packed red blood cells transfused 1 unit
Remained tachycardic with soft BP, although with no evidence of melanotic stool since after endoscopy on 08/27.
Transfused additional 2 units of packed red blood cells overnight on 08/27 - 08/28. So far hemoglobin plateau at 8.9
Monitor serial H&H.
Right Achilles tendon rupture prompted to NSAIDs use.
Avoid NSAIDs given above.
Analgesic regimen with oxycodone and Tylenol.
Anticipated Discharge: 24 - 48 hours
Subjective/Interval History
-
Date of Service: August 28, 2024
Objective Data
-
Labs:
Laboratory Results
08/28/24 08/28/24 08/28/24
07:18 10:14 20:00
WBC 12.5 H
Hgb 8.9 L 8.9 L Pending
Hct 25.5 L
Plt Count 125 L D
Sodium 140
Potassium 4.1
Chloride 112 H
Carbon Dioxide 24
BUN 23 H
Creatinine 0.7
Glucose 108 H
Calcium 8.3 L
Vital Signs:
Vital Signs
Temp Pulse Resp BP Pulse Ox
98.1 F 93 17 111/65 98
08/28/24 07:59 08/28/24 10:00 08/28/24 10:00 08/28/24 10:00 08/28/24 11:20
I&O
08/27/24 08/28/24 08/29/24
06:59 06:59 06:59
Intake Total 0 / 0 800 / 800
Output Total 775 / 775 1750 / 1750
Balance -775 / -775 -950 / -950
Physical Exam
-
General: Well Developed and No Apparent Distress
HEENT: Normocephalic, Atraumatic and Moist Mucous Membranes
Respiratory: Clear to Auscultation
Cardiac: Regular Rhythm and S1/S2; Negative Murmur, Rub or Gallop
GI: Soft, Nontender, Nondistended and Normal Bowel Sounds; Negative Organomegaly
Rectal: Deferred by Provider
Musculoskeletal: No Clubbing, No Cyanosis and No Edema
Skin: Negative Rash
Neuro: Nonfocal/Grossly Intact
--- NOTE | 2024-08-28 15:38 | PTCARENOTE ---
Rec'd pt this AM, repeat H and H stable. hypotension resolved, no BMs. tolerated clear liquid diet. denies pain.
--- NOTE | 2024-08-28 15:45 | CM ---
Patient with Hx Right Achilles tendon rupture taking NSAIDs with Dx Acute GI hemorrhage, Acute blood loss anemia. Room air. Per nurse: A/O.
Spoke with patient's Dianne;
the patient resides with his & 2 children, ages 19 & 15, in a 2 story townhouse with 1 [address].
He was independent in ADLs and ambulation using crutches, with boot on right leg.
Dianne says the patient was scheduled for surgery yesterday for his ruptured achilles tendon, that was cancelled.
DME - crutches, boot right leg
No prior VN or outpatient PT/OT.
The patient has no PCP.
Pharmacy - [facility] [address], [place]
CM continuing to follow.
Plan home.
[2024-08-28 20:05] LABS: Hemoglobin 9.1 g/dL (13.0-18.0)
[2024-08-29] VITALS (13 sets, daily range): BP systolic 83–118; BP diastolic 52–70
[2024-08-29] MEDS: PROTONIX 100 IV ×3 (04:21→22:58)
[2024-08-29 05:07] LABS: % Basophils 0.3 % (0-2); % Eosinophils 1.2 % (0-6); % Immature Granulocytes 0.2 % (0-0.5); % Lymphocytes 38.5 % (20.5-51.1); % Monocytes 8.7 % (1.7-9.3); % Neutrophils 51.1 % (42.2-75.2); Absolute Eosinophils 0.1 10^3/uL (0-0.7); Absolute Lymphocytes 2.5 10^3/uL (1.2-3.4); Absolute Monocytes 0.6 10^3/uL (0.1-0.6); Absolute Neutrophils 3.3 10^3/uL (1.4-6.5); Hematocrit 25.1 % (39.0-52.0); Hemoglobin 8.7 g/dL (13.0-18.0); Mean Corp Hgb Conc. 34.7 g/dL (33.0-37.0); Mean Corpuscular Hgb 31.8 pg (27.0-31.0); Mean Corpuscular Volume 91.6 fL (80.0-94.0); Mean Platelet Volume 10.4 fL (7.4-10.4); Nucleated Red Blood Cells % 0 % (-); Platelet Count 121 10^3/uL (130-400); Red Blood Cell Count 2.74 10^6/uL (4.70-6.10); Red Cell Dist. Width 12.8 % (11.5-14.5); White Blood Cell Count 6.4 10^3/uL (4.8-10.8)
[2024-08-29 05:26] LABS: Blood Urea Nitrogen 18 mg/dl (9-20); Calcium 8.4 mg/dl (8.4-10.2); Carbon Dioxide 27 mmol/L (22-30); Chloride 110 mmol/L (98-107); Estimated Creatinine Clearance 123 ml/min; Glucose 101 mg/dl (70-99); Potassium 3.8 mmol/L (3.5-5.1); Sodium 140 mmol/L (135-145); eGFR > 60.00
--- NOTE | 2024-08-29 06:19 | PTCARENOTE ---
Small brown/black BM in BSC; sample sent to lab. Pt denied any dizziness or lightheadedness while OOB. RLE boot in place. Denies any pain. No gi/gu complaints. voiding via urinal. BP labile while sleeping, WNL when awake. NSR on tele. Turning self
while in bed. Protonix gtt continues per the MAR. refusing Carafate; education provided. labs drawn and sent this morning. call collins within reach. pt calls appropriately for assistance.
[2024-08-29 07:54] LABS: Hemoglobin 8.9 g/dL (13.0-18.0)
--- NOTE | 2024-08-29 09:43 | W.PN.HOSP.TC ---
Today's Communication/Plan
-
Diet being advanced to low residue. Encourage ambulation. Possible d/c tomorrow.
Assessment / Plan
Assessment / Plan
Impression/presentation:
49-year-old male presented to the emergency department with dizziness and presyncopal episode.
This Improved with IV fluids in the ED but then was found to have heme positive dark stools on rectal examination. ECG was nonischemic and unremarkable. His labs initially showed a hemoglobin of 12.3 and a normal creatinine. The BUN was elevated
to 46 with normal creatinine. Pre-syncope may have been from GIBleed, and the blood loss could be acute and significant.
Hematocrit went from 35 to 26, to 22. today at 25.1
Acute gastrointestinal hemorrhage.
Acute blood loss anemia.
h/o recent Right Achilles tendon rupture (Rx NSAIDs)
Plan
1. Acute gastrointestinal hemorrhage - resolving
Urgent upper endoscopy 08/27 revealed nonbleeding gastric ulcer and oozing duodenal ulcer. Treated.
Continue IV PPI until discharge
Clear liquid diet today advanced to low residue
If tolerates it and HH stable, likely home tomorrow
Family requested test for H. pylori. Ordered stool antigen, although would be low specificity if negative while on PPI
Outpatient testing in 3 months
2. Acute blood loss anemia - improving
Hemoglobin improving over the last 24 hours
Status post packed red blood cells transfused 1 unit
tachycardic with soft BP, although with no evidence of melanotic stool since after endoscopy on 08/27 - improved today
Transfused additional 2 units of packed red blood cells overnight on 08/27 - 08/28. So far hemoglobin holding
Monitor serial H&H.
3. Right Achilles tendon rupture prompted to NSAIDs use.
Avoid NSAIDs given above.
Analgesic regimen with oxycodone and Tylenol as needed
Full code
SCD for DVTp
Anticipated Discharge: 24 - 48 hours
Subjective/Interval History
-
Date of Service: August 29, 2024
Feels better, wants to eat and move.
Objective Data
-
Labs:
Laboratory Results
08/29/24 08/29/24 08/29/24
04:47 07:46 20:00
WBC 6.4
Hgb 8.7 L 8.9 L Pending
Hct 25.1 L
Plt Count 121 L
Sodium 140
Potassium 3.8
Chloride 110 H
Carbon Dioxide 27
BUN 18
Creatinine 0.8
Glucose 101 H
Calcium 8.4
Vital Signs:
Vital Signs
Temp Pulse Resp BP Pulse Ox
98.1 F 63 14 111/63 98
08/29/24 07:02 08/29/24 06:00 08/29/24 06:00 08/29/24 06:00 08/29/24 06:00
I&O
08/28/24 08/29/24 08/30/24
06:59 06:59 06:59
Intake Total 800 / 800
Output Total 1750 / 1750 177 / 1774
Balance -950 / -950 -1775 / -1775
Review of Systems
-
History Source: Patient
All other systems: Reviewed and negative
Physical Exam
-
General: Well Developed, Well Nourished, No Apparent Distress and Comfortable
HEENT: Normocephalic, Atraumatic, Moist Mucous Membranes, Nose Appears Normal and Ears Appear Normal
Respiratory: Clear to Auscultation
Cardiac: Regular Rhythm and S1/S2
GI: Soft, Nontender and Nondistended
Musculoskeletal: No Clubbing, No Cyanosis and No Edema
Skin: Warm and Dry; Negative Rash
Neuro: Awake, Alert, Oriented and AO x 3
Psych: Calm
Data Reviewed
-
Labs: Labs Reviewed by me
--- NOTE | 2024-08-29 12:28 | W.PN.GI.CBS2 ---
Today's Communication / Plan
-
-- Low residue diet, finish out PPI drip today then twice daily starting tomorrow. If stable tomorrow okay for discharge
Discussed with Dr. Jerez
Assessment / Plan
-
49-year-old male with no significant past medical history with recent right Achilles rupture 08/11/2024 taking ibuprofen 1600 mg daily since that time, started on aspirin 162 mg twice daily since 08/15/2024 (DVT prophylaxis) was to have surgical
repair today presents to the emergency room with acute onset of fatigue, weakness, near syncope, nausea and melena that started on 08/26/[address] of abdomen and pelvis with IV contrast shows active duodenal bleed. Patient's hemoglobin
went from 12.3 down to 9.1. Patient with tachycardia hypotension requiring fluid boluses. Now with 1 unit of packed red blood cells hanging. Protonix bolus and drip has been initiated.
Impression:
Acute upper GI bleed
--> CT positive for active duodenal bleed
--> Recent aspirin and ibuprofen use
Right Achilles tendon rupture
08/27/2024 -EGD with Dr. James
Hold blood residue in the fundus unable to clear, small gastric ulcer nonbleeding
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 Treated with epinephrine and 4 clips
No specimens were taken
08/28/2024 -patient received 1 unit of blood the morning of 626 with hemoglobin posttransfusion 9.8
--Last night's hemoglobin 8.2 and was given 2 units of blood overnight and repeat hemoglobin 8.9
--Blood pressures are still low. He has not had any melena since yesterday and BUN is decreasing which is comforting
--Will repeat hemoglobin at 10 AM today. If it drops significantly we will repeat EGD today
--N.p.o.,
--Communicated with hospitalist and RN
--Patient also had multiple questions that I answered regarding H. pylori testing and DVT prophylaxis.
--He is not a candidate for DVT prophylaxis other than SCDs in the setting of active bleeding. He did not seem to understand this well. I did communicate with his orthopedic doctor who then called him to explain
--Patient is currently on a PPI drip so H. pylori testing is not all that accurate and we can test it later on. He had a clear reason for his ulcers which were significant NSAID use.
08/29/2024: Hemoglobin has been stable since 08/27
Vital signs are stable. No signs of overt bleeding. Expect some mild dark stools from residual blood from the duodenal NSAID induced ulcer
-- Avoid NSAIDs
-- Twice daily PPI x 2 months, then once daily
-- H. pylori testing eventually however highly likely NSAID induced
-- Low residue diet for lunch
-- If does well overnight okay for discharge tomorrow, follow-up with Dr. James
Subjective
Subjective
Date of Service: August 29, 2024
No overt bleeding, patient is hungry. Has not gotten out of bed.
Objective
Data Reviewed
Laboratory Data:
Laboratory Results
08/29/24 04:47
Laboratory Results
Magnesium 2.0 mg/dl (1.6-2.3) 08/27/24 03:51
Total Bilirubin 0.8 mg/dl (0.2-1.3) 08/26/24 18:17
AST 22 U/L (17-59) 08/26/24 18:17
ALT 25 U/L (0-50) 08/26/24 18:17
Alkaline Phosphatase 52 U/L (38-126) 08/26/24 18:17
Vital Signs and I&O:
Vital Signs
Temp Pulse Resp BP Pulse Ox
98.1 F 75 17 108/67 97
08/29/24 07:02 08/29/24 11:00 08/29/24 11:00 08/29/24 10:00 08/29/24 11:30
I&O
08/28/24 08/29/24 08/30/24
06:59 06:59 06:59
Intake Total 800 / 800
Output Total 1750 / 1750 177 / 1774 1100 / 1099
Balance -950 / -950 -1775 / -1775 -1100 / -1100
Physical Exam
Physical Exam
HEENT: Anicteric
Cardiology: Normal Sinus Rhythm
Pulmonary: Clear
GI: Soft and Non Tender
Extremities: No Edema
Neuro: Non Focal
--- NOTE | 2024-08-29 13:36 | PTCARENOTE ---
Pt's assessment as documented. Aox3. NSR. Tolerating diet. Care as documented. Ringing appropriately; call collins within reach.
[2024-08-29 20:22] LABS: Hematocrit 24.4 % (39.0-52.0); Hemoglobin 8.6 g/dL (13.0-18.0)
[2024-08-30] VITALS (7 sets, daily range): BP systolic 91–122; BP diastolic 59–81
[2024-08-30 05:09] LABS: Hematocrit 23.8 % (39.0-52.0); Hemoglobin 8.6 g/dL (13.0-18.0); Mean Corp Hgb Conc. 36.1 g/dL (33.0-37.0); Mean Corpuscular Hgb 33.1 pg (27.0-31.0); Mean Corpuscular Volume 91.5 fL (80.0-94.0); Mean Platelet Volume 10.4 fL (7.4-10.4); Platelet Count 143 10^3/uL (130-400); Red Cell Dist. Width 12.3 % (11.5-14.5)
--- NOTE | 2024-08-30 05:43 | PTCARENOTE ---
No acute changes overnight. No gi/gu complaints. Protonix gtt continues. NSR on tele. Call collins and tray table within reach.
[2024-08-30] MEDS: PROTONIX 100 IV (08:48)
--- NOTE | 2024-08-30 09:17 | W.PN.HOSP.TC ---
Today's Communication/Plan
-
discharge after IV iron infusion
Assessment / Plan
Assessment / Plan
Impression/presentation:
49-year-old male presented to the emergency department with dizziness and presyncopal episode.
This Improved with IV fluids in the ED but then was found to have heme positive dark stools on rectal examination. ECG was nonischemic and unremarkable. His labs initially showed a hemoglobin of 12.3 and a normal creatinine. The BUN was elevated
to 46 with normal creatinine. Pre-syncope may have been from GIBleed, and the blood loss could be acute and significant.
Hematocrit went from 35 to 26, to 22. today at 25.1
Acute gastrointestinal hemorrhage.
Acute blood loss anemia.
h/o recent Right Achilles tendon rupture (Rx NSAIDs)
Plan
1. Acute gastrointestinal hemorrhage - resolving
Urgent upper endoscopy 08/27 revealed nonbleeding gastric ulcer and oozing duodenal ulcer. Treated.
Continue IV PPI until discharge - then twice daily ppi po
diet advanced to low residue
D/C home today
Family requested test for H. pylori. Ordered stool antigen, although would be low specificity if negative while on PPI
Outpatient testing in 3 months
2. Acute blood loss anemia - improving
Hemoglobin improving over the last 24 hours
Status post packed red blood cells transfused 1 unit
tachycardic with soft BP, although with no evidence of melanotic stool since after endoscopy on 08/27 - improved today
Transfused additional 2 units of packed red blood cells overnight on 08/27 - 08/28. So far hemoglobin holding
Monitor serial H&H.
3. Right Achilles tendon rupture prompted to NSAIDs use.
Avoid NSAIDs given above.
Analgesic regimen with oxycodone and Tylenol as needed
Full code
SCD for DVTp
Anticipated Discharge: Today
Subjective/Interval History
-
Date of Service: August 30, 2024
Feels well. Tolerating a low residue diet.
Objective Data
-
Labs:
Laboratory Results
08/30/24
05:01
WBC 8.0
Hgb 8.6 L
Hct 23.8 L
Plt Count 143
Vital Signs:
Vital Signs
Temp Pulse Resp BP Pulse Ox
98.1 F 66 16 107/70 96
08/30/24 08:19 08/30/24 06:00 08/30/24 06:00 08/30/24 06:00 08/30/24 06:00
I&O
08/29/24 08/30/24 08/31/24
06:59 06:59 06:59
Output Total 1774 / 1949 375 / 375
Balance -1774 / -1774 -1949 / -1949 -375 / -375
Review of Systems
-
History Source: Patient
All other systems: Reviewed and negative
Physical Exam
-
General: Well Developed, Well Nourished, No Apparent Distress, Comfortable and Conversant
HEENT: Normocephalic, Atraumatic, Moist Mucous Membranes, Nose Appears Normal and Ears Appear Normal
Respiratory: Clear to Auscultation
Cardiac: Regular Rhythm and S1/S2
GI: Soft, Nontender and Nondistended
Musculoskeletal: No Clubbing, No Cyanosis and No Edema
Skin: Warm and Dry
Psych: Calm
Data Reviewed
-
Labs: Labs Reviewed by me
--- NOTE | 2024-08-30 09:22 | W.DCSUMMARY ---
Discharge Summary
Discharge Data
Date of Admission: 08/27/24
Date of Discharge: 08/30/24
Total time spent discharging patient (in min): 51
-
Pending Results: No
Hospital Course
Impression/presentation:
49-year-old male presented to the emergency department with dizziness and presyncopal episode. This Improved with IV fluids in the ED but then was found to have heme positive dark stools on rectal examination. ECG was nonischemic and unremarkable.
His labs initially showed a hemoglobin of 12.3 and a normal creatinine. The BUN was elevated to 46 with normal creatinine. Pre-syncope may have been from GIBleed, and the blood loss could be acute and significant. He had been taking NSAIDs for
Achilles tendon injury. Hematocrit went from 35 to 26, to 22.
Initial diagnosis were:
Acute gastrointestinal hemorrhage.
Acute blood loss anemia.
h/o recent Right Achilles tendon rupture (Rx NSAIDs)
hospital course by problem:
1. Acute gastrointestinal hemorrhage - resolving
Urgent upper endoscopy 08/27 revealed nonbleeding gastric ulcer and oozing duodenal ulcer. Treated.
Continued IV PPI until discharge - then twice daily ppi po for a month then switch to po BID.
Continue diet as tolerated
Family requested test for H. pylori.
Outpatient testing in 3 months would be best follow up.
2. Acute blood loss anemia - improving
Hemoglobin improved then stabilized (though still low)
Status post packed red blood cells transfused 1 unit
tachycardic with soft BP, although with no evidence of melanotic stool since after endoscopy on 08/27 - improved by time of discharge.
Transfused additional 2 units of packed red blood cells overnight on 08/27 - 08/28. So far hemoglobin holding, though not yet normal.
recommendation is for CBC in 2 days with results going to Dr. Neil's office.
3. Right Achilles tendon rupture prompted to NSAIDs use.
Avoid NSAIDs given above.
Analgesic regimen with oxycodone and Tylenol as needed.
Full code throughout his stay.
Discharge Plan
-
Patient Disposition: Home (Routine Discharge)
Discharge Diagnosis/Procedures: Upper GI bleed, Endoscopy, Acute blood loss anemia
Diet: As tolerated
Activity: As tolerated
Driving Restrictions: As prior to admission
Bathing Restrictions: None
Blood Work: CBC on 09/01/24 with results to go to Dr. Kira Neil's office
Referrals:
UNKNOWN - PT DOES,NOT KNOW [Family Provider]
Additional Discharge Medication Instructions: Protonix 40 mg po BID
Prescriptions:
New
sucralfate 100 mg/mL Suspension
10 ml PO QID Qty: 300 0RF
pantoprazole [Protonix] 40 mg tablet,delayed release (DR/EC)
40 mg PO BID Qty: 60 0RF
Discharge Orders:
Discharge Patient (As Directed); Ordered 08/30/24
Ordered By: Ricki Jerez
Discharge Date and Time
Print Language: PORTUGUESE
--- NOTE | 2024-08-30 11:06 | W.PN.GI.CBS2 ---
Today's Communication / Plan
-
Okay for discharge. CBC next week
Assessment / Plan
-
49-year-old male with no significant past medical history with recent right Achilles rupture 08/11/2024 taking ibuprofen 1600 mg daily since that time, started on aspirin 162 mg twice daily since 08/15/2024 (DVT prophylaxis) was to have surgical
repair today presents to the emergency room with acute onset of fatigue, weakness, near syncope, nausea and melena that started on 08/26/[address] of abdomen and pelvis with IV contrast shows active duodenal bleed. Patient's hemoglobin
went from 12.3 down to 9.1. Patient with tachycardia hypotension requiring fluid boluses. Now with 1 unit of packed red blood cells hanging. Protonix bolus and drip has been initiated.
Impression:
Acute upper GI bleed
--> CT positive for active duodenal bleed
--> Recent High-dose aspirin and ibuprofen use
Right Achilles tendon rupture
08/27/2024 -EGD with Dr. James
blood residue in the fundus unable to clear, small gastric ulcer nonbleeding
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 Treated with epinephrine and 4 clips
No specimens were taken
08/28/2024 -patient received 1 unit of blood the morning of 626 with hemoglobin posttransfusion 9.8
--Last night's hemoglobin 8.2 and was given 2 units of blood overnight and repeat hemoglobin 8.9
--Blood pressures are still low. He has not had any melena since yesterday and BUN is decreasing which is comforting
--Will repeat hemoglobin at 10 AM today. If it drops significantly we will repeat EGD today
--N.p.o.,
--Communicated with hospitalist and RN
--Patient also had multiple questions that I answered regarding H. pylori testing and DVT prophylaxis.
--He is not a candidate for DVT prophylaxis other than SCDs in the setting of active bleeding. He did not seem to understand this well. I did communicate with his orthopedic doctor who then called him to explain
--Patient is currently on a PPI drip so H. pylori testing is not all that accurate and we can test it later on. He had a clear reason for his ulcers which were significant NSAID use.
08/29/2024: Hemoglobin has been stable since 08/27
Vital signs are stable. No signs of overt bleeding. Expect some mild dark stools from residual blood from the duodenal NSAID induced ulcer
-- Avoid NSAIDs
-- Twice daily PPI x 2 months, then once daily
-- H. pylori testing eventually however highly likely NSAID induced
-- Low residue diet for lunch
-- If does well overnight okay for discharge tomorrow, follow-up with Dr. James
08/30/2024 -hemoglobin continues to be stable. BUN is now normal. Stools are more brown. All signs that bleeding has stopped
-- Avoid NSAIDs, twice daily PPI x 2 months, then once daily
Follow-up with Dr. James outpatient
Subjective
Subjective
Date of Service: August 30, 2024
Patient denies any significant issues. Still has not gotten out of bed much.
Objective
Data Reviewed
Laboratory Data:
Laboratory Results
08/30/24 05:01
08/29/24 04:47
Laboratory Results
Magnesium 2.0 mg/dl (1.6-2.3) 08/27/24 03:51
Total Bilirubin 0.8 mg/dl (0.2-1.3) 08/26/24 18:17
AST 22 U/L (17-59) 08/26/24 18:17
ALT 25 U/L (0-50) 08/26/24 18:17
Alkaline Phosphatase 52 U/L (38-126) 08/26/24 18:17
Vital Signs and I&O:
Vital Signs
Temp Pulse Resp BP Pulse Ox
98.1 F 66 16 107/70 98
08/30/24 08:19 08/30/24 06:00 08/30/24 06:00 08/30/24 06:00 08/30/24 10:54
I&O
08/29/24 08/30/24 08/31/24
06:59 06:59 06:59
Output Total 1774 / 1949 375 / 375
Balance -1774 / -1774 -1949 / -1949 - / 375
Physical Exam
Physical Exam
HEENT: Anicteric
Cardiology: Normal Sinus Rhythm
GI: Soft, Non Distended and Non Tender
[2024-08-30] MEDS: FERRLECIT 110 MG IV (13:25)
--- NOTE | 2024-08-30 14:59 | PTCARENOTE ---
Pt for d/c home. Instructions and med list reviewed with pt and . IV and monitor equipment removed. Rx given to pt with d/c packet. Belongings collected from room. D/c off unit via wheelchair.
[2024-08-30 23:28] LABS: H. pylori Antigen, Fecal Negative (Negative)
== END 2024-08-30 15:16 | disposition home or self-care (01) | DRG 378 ==
LOC: IMU 10:28
PROVIDERS: Emergency Medicine; Internal Medicine; Nurse Practitioner Family; ADMITTING PHYSICIAN Internal Medicine; ATTENDING PHYSICIAN Internal Medicine; CONSULT PHYSICIAN Internal Medicine Gastroenterology; EMERGENCY PHYSICIAN Emergency Medicine
PROC: 0W3P8ZZ Control Bleeding in Gastrointestinal Tract, Via Natural or Artificial Opening Endoscopic (ICD-10-PCS; 2024-08-27)
PROC: 30233N1 Transfusion of Nonautologous Red Blood Cells into Peripheral Vein, Percutaneous Approach (ICD-10-PCS; 2024-08-27)
DX: K25.4 Chronic or unspecified gastric ulcer with hemorrhage (principal); D62 Acute posthemorrhagic anemia; K31.5 Obstruction of duodenum; S86.011A Strain of right Achilles tendon, initial encounter; K44.9 Diaphragmatic hernia without obstruction or gangrene; K26.4 Chronic or unspecified duodenal ulcer with hemorrhage
CPT/HCPCS: 74177; 80048; 80053; 82962; 83605; 83735; 84484; 85014; 85018; 85025; 85027; 85379; 86850; 86900; 86901; 86920; 87338; 93005; 96360; 99291; J2916; P9016; Q9967

== ENCOUNTER → 2024-09-01 09:54 | Outpatient (REF) | payer OTHER, SELFPAY ==
[2024-09-01 11:19] LABS: Hematocrit 30.7 % (39.0-52.0); Hemoglobin 10.5 g/dL (13.0-18.0); Mean Corp Hgb Conc. 34.2 g/dL (33.0-37.0); Mean Corpuscular Volume 94.5 fL (80.0-94.0); Nucleated Red Blood Cells % 0 % (-); Platelet Count 240 10^3/uL (130-400); Red Cell Dist. Width 13.3 % (11.5-14.5)
== END ==
LOC: REG 09:54
PROVIDERS: ATTENDING PHYSICIAN Internal Medicine; OTHER PHYSICIAN Internal Medicine
DX: K92.2 Gastrointestinal hemorrhage, unspecified (principal)
CPT/HCPCS: 36415; 85025

== ENCOUNTER → 2024-10-19 08:17 | Outpatient (REF) | payer OTHER, SELFPAY ==
[2024-10-19 09:02] LABS: Hematocrit 39.3 % (39.0-52.0); Hemoglobin 12.8 g/dL (13.0-18.0); Mean Corp Hgb Conc. 32.6 g/dL (33.0-37.0); Mean Corpuscular Volume 91.2 fL (80.0-94.0); Nucleated Red Blood Cells % 0 % (-); Platelet Count 186 10^3/uL (130-400); Red Cell Dist. Width 11.8 % (11.5-14.5)
== END ==
LOC: REG 08:17
PROVIDERS: ATTENDING PHYSICIAN Nurse Practitioner
DX: D50.0 Iron deficiency anemia secondary to blood loss (chronic) (principal)
CPT/HCPCS: 36415; 85025

== ENCOUNTER 2024-11-20 06:17 | Day surgery (SDC) | payer OTHER, SELFPAY | END 2024-11-20 14:34 | disposition home or self-care (01) | LOC: GI 06:17 | PROVIDERS: ATTENDING PHYSICIAN Internal Medicine Gastroenterology | DX: K29.50 Unspecified chronic gastritis without bleeding (principal); K44.9 Diaphragmatic hernia without obstruction or gangrene; K31.89 Other diseases of stomach and duodenum; Z87.11 Personal history of peptic ulcer disease | CPT/HCPCS: 43239; 88305; 88342 ==